=== PATIENT | male | born 1990 | race Caucasian/White ===

== ENCOUNTER 2018-05-20 11:08 | Emergency (ER) | payer OTHER ==
--- NOTE | 2018-05-20 11:17 | ERPHSYRPT ---
- History of Present Illness Time Seen by Provider: 05/20/18 11:16 Historian: patient Exam Limitations: no limitations Physician History: 27 y/o white male presents with left flank pain. began suddenly this am and radiates into left groin. associated n/v x 1. pt is diaphoretic. pt has nkda. Timing/Duration: today Activities at Onset: none Quality: sharpness, stabbing Abdominal Pain Onset Location: flank (left) Pain Radiation: groin (left) Severity of Pain-Max: moderate Severity of Pain-Current: moderate Modifying Factors: Improves With: vomiting (x1) Associated Symptoms: back, vomiting (x1) Previous symptoms: no prior history Allergies/Adverse Reactions: No Known Drug Allergies Allergy (Unverified 05/20/18 11:17) - Review of Systems Constitutional: No Symptoms Eyes: No Symptoms Ears, Nose, & Throat: No Symptoms Respiratory: No Symptoms Cardiac: No Symptoms Abdominal/Gastrointestinal: Nausea, Vomiting Genitourinary Symptoms: Flank Pain (left) Musculoskeletal: No Symptoms Skin: No Symptoms Neurological: No Symptoms Psychological: No Symptoms Endocrine: No Symptoms Hematologic/Lymphatic: No Symptoms Immunological/Allergic: No Symptoms All Other Systems: Reviewed and Negative - Past Medical History Pertinent Past Medical History: No Neurological History: No Pertinent History ENT History: No Pertinent History Cardiac History: No Pertinent History Respiratory History: No Pertinent History Endocrine Medical History: No Pertinent History Musculoskeletal History: No Pertinent History GI Medical History: No Pertinent History History: No Pertinent History Psycho-Social History: No Pertinent History Male Reproductive Disorders: No Pertinent History - Past Surgical History Neuro Surgical History: No Pertinent History Cardiac: No Pertinent History Respiratory: No Pertinent History Gastrointestinal: No Pertinent History Genitourinary: No Pertinent History Musculoskeletal: No Pertinent History Male Surgical History: No Pertinent History - Nursing Vital Signs Nursing Vital Signs: Initial Vital Signs Temperature 97.9 F 05/20/18 11:11 Pulse Rate 102 H 05/20/18 11:11 Respiratory Rate 24 05/20/18 11:11 Blood Pressure 157/96 05/20/18 11:11 O2 Sat by Pulse Oximetry 97 05/20/18 11:11 Pain Scale Pain Intensity 4 - Physical Exam General Appearance: moderate distress, alert, anxiety Eye Exam: PERRL/EOMI Ears, Nose, Throat Exam: normal ENT inspection, moist mucous membranes Neck Exam: normal inspection, non-tender, supple, full range of motion Respiratory Exam: normal breath sounds, lungs clear, airway intact, No chest tenderness, No respiratory distress Cardiovascular Exam: normal heart sounds, normal peripheral pulses, tachycardia Gastrointestinal/Abdomen Exam: soft, normal bowel sounds, No tenderness, No guarding, No rebound Rectal Exam: not done Back Exam: normal inspection, normal range of motion, CVA tenderness (left), No vertebral tenderness Extremity Exam: normal inspection, normal range of motion, pelvis stable Neurologic Exam: alert, cooperative, 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 Skin Exam: normal color, warm, dry Lymphatic Exam: No adenopathy SpO2 Interpretation: normal O2 Delivery: Room Air - Course Nursing assessment & vital signs reviewed: Yes Ordered Tests: Active Orders 24 hr Category Date Time Status Clean Catch Urine Specimen STAT Care 05/20/18 11:23 Active IV Insertion STAT Care 05/20/18 11:23 Active ABDOMEN AND PELVIS W/0 CONTRAS [CT] Stat Exams 05/20/18 11:22 Taken AMYLASE Stat Lab 05/20/18 11:23 Completed CBC W DIFF Stat Lab 05/20/18 11:23 Completed CMP Stat Lab 05/20/18 11:23 Completed UA W/RFX UR CULTURE Stat Lab 05/20/18 11:23 Uncollected Medication Summary Generic Name Dose Route Start Last Admin Trade Name Freq PRN Reason Stop Dose Admin Sodium Chloride 1,000 mls @ 999 mls/hr 05/20/18 11:23 05/20/18 11:27 Sodium Chloride 0.9% 1000 Ml IV 05/20/18 12:23 999 mls/hr .Q1H1M STA Administration Discontinued Medications Generic Name Dose Route Start Last Admin Trade Name Freq PRN Reason Stop Dose Admin Hydromorphone HCl Confirm 05/20/18 11:22 Hydromorphone 1 Mg/Ml Ampule Administered 05/20/18 11:23 Dose 1 mg .ROUTE .STK-MED ONE Hydromorphone HCl 1 mg 05/20/18 11:23 05/20/18 11:26 Hydromorphone 1 Mg/Ml Ampule IV 05/20/18 11:24 1 mg STAT ONE Administration Sodium Chloride Confirm 05/20/18 11:27 Sodium Chloride 0.9% 1000 Ml Administered 05/20/18 11:28 Dose 1,000 mls @ ud .ROUTE .STK-MED ONE Ketorolac Tromethamine Confirm 05/20/18 11:21 Toradol 30 Mg Injection Administered 05/20/18 11:22 Dose 30 mg .ROUTE .STK-MED ONE Ketorolac Tromethamine 30 mg 05/20/18 11:23 05/20/18 11:26 Toradol 30 Mg Injection IV 05/20/18 11:24 30 mg STAT ONE Administration Ondansetron HCl Confirm 05/20/18 11:21 Zofran 4 Mg/2 Ml Vial Administered 05/20/18 11:22 Dose 4 mg .ROUTE .STK-MED ONE Ondansetron HCl 4 mg 05/20/18 11:23 05/20/18 11:26 Zofran 4 Mg/2 Ml Vial IV 05/20/18 11:24 4 mg STAT ONE Administration Lab/Rad Data: Laboratory Result Diagrams 05/20/18 11:23 05/20/18 11:23 Laboratory Results 05/20/18 05/20/18 Range/Units 11:23 11:23 WBC 9.2 (4.0-10.5) K/mm3 RBC 5.58 (4.1-5.6) M/mm3 Hgb 16.3 (12.5-18.0) gm/dl Hct 47.5 (42-50) % MCV 85.1 (78-100) fl MCH 29.2 (26-32) pg MCHC 34.3 (32-36) g/dl RDW 12.7 (11.5-14.0) % Plt Count 266 (150-450) K/mm3 MPV 10.7 H (6-9.5) fl Gran % 59.6 (36.0-66.0) % Eos # (Auto) 0.24 (0-0.5) Absolute Lymphs (auto) 2.69 (1.0-4.6) Absolute Monos (auto) 0.75 (0.0-1.3) Lymphocytes % 29.2 (24.0-44.0) % Monocytes % 8.1 (0.0-12.0) % Eosinophils % 2.6 (0.00-5.0) % Basophils % 0.5 (0.0-0.4) % Absolute Granulocytes 5.48 (1.4-6.9) Basophils # 0.05 (0-0.4) Sodium 142 (137-145) mmol/L Potassium 3.1 L (3.5-5.1) mmol/L Chloride 105 (98-107) mmol/L Carbon Dioxide 24 (22-30) mmol/L Anion Gap 16.5 H (5-15) MEQ/L BUN 15 (9-20) mg/dL Creatinine 1.07 (0.66-1.25) mg/dL Estimated GFR > 60.0 ML/MIN Glucose 142 H (74-106) mg/dL Calcium 9.7 (8.4-10.2) mg/dL Total Bilirubin 2.10 H (0.2-1.3) mg/dL AST 23 (17-59) U/L ALT 28 (0-50) U/L Alkaline Phosphatase 74 (38-126) U/L Serum Total Protein 8.4 H (6.3-8.2) g/dL Albumin 5.0 (3.5-5.0) g/dL Amylase 115 H (30-110) U/L - Progress Progress: improved, pain not gone completely, re-examined Progress Note: 05/20/18 12:19 ct scan abd/pelvis-left mid ureter 4 to 5 mm calculus. minimal hydronephrosis Counseled pt/family regarding: lab results, diagnosis, need for follow-up, rad results - Departure Time of Disposition: 12:21 Departure Disposition: Home Clinical Impression: Ureteral stone Condition: Stable Critical Care Time: No Referrals: FEDERICO TREJO MD [Emergency Provider] - Additional Instructions: drink plenty of fluids. follow up with urologist for further management. add ibuprofen 600mg orally 3 times daily with food. Prescriptions: Hydrocodone/APAP 5-325 Tab^^^ [[place] 5-325 Tablet^^^] 1 tab PO Q6HPRN PRN #10 tablet MDD 6 PRN Reason: Pain
[2018-05-20] MEDS ORDERED: TORAdol 30 mg Injection ONE (11:21)
[2018-05-20] MEDS ORDERED: Zofran 4 MG/2 ML VIAL ONE (11:21)
[2018-05-20] MEDS ORDERED: Hydromorphone 1 mg/ml Ampule ONE (11:22)
[2018-05-20] MEDS ORDERED: Sodium Chloride 0.9% 1000 ML 1,000 ML IV STA (11:23)
[2018-05-20] MEDS ORDERED: TORAdol 30 mg Injection IV ONE (11:23)
[2018-05-20] MEDS ORDERED: Zofran 4 MG/2 ML VIAL IV ONE (11:23)
[2018-05-20] MEDS ORDERED: Hydromorphone 1 mg/ml Ampule IV ONE (11:23)
[2018-05-20] MEDS ORDERED: Sodium Chloride 0.9% 1000 ML 1,000 ML ONE (11:27)
[2018-05-20 11:50] LABS: ALKALINE PHOSPHATASE 74 U/L (38-126); AMYLASE 115 U/L (30-110); ANION GAP 16.5 MEQ/L (5-15); BLOOD UREA NITROGEN 15 mg/dL (9-20); CHLORIDE 105 mmol/L (98-107); Calcium 9.7 mg/dL (8.4-10.2); Carbon Dioxide 24 mmol/L (22-30); Creatinine 1 1.07 mg/dL (0.66-1.25); Glucose 142 mg/dL (74-106); Potassium 3.1 mmol/L (3.5-5.1); SGOT/AST 23 U/L (17-59); SGPT/ALT 28 U/L (0-50); SODIUM 142 mmol/L (137-145); Total Protein 8.4 g/dL (6.3-8.2)
[2018-05-20 11:52] LABS: BASOPHIL % 0.5 % (0.0-0.4); Basophil (Absolute #) 0.05 (0-0.4); Eosinophil % 2.6 % (0.00-5.0); Eosinophil (Absolute #) 0.24 (0-0.5); Granulocyte Absolute (ANC) 5.48 (1.4-6.9); Granulocytes % 59.6 % (36.0-66.0); Hematocrit 47.5 % (42-50); Hemoglobin 16.3 gm/dl (12.5-18.0); Lymphocyte (Absolute #) 2.69 (1.0-4.6); Lymphocytes % 29.2 % (24.0-44.0); Mean Cell Volume 85.1 fl (78-100); Mean Corpuscular Hemoglobin 29.2 pg (26-32); Mean Corpuscular Hgb Concent. 34.3 g/dl (32-36); Mean Platelet Volume 10.7 fl (6-9.5); Monocyte (Absolute #) 0.75 (0.0-1.3); Monocytes % 8.1 % (0.0-12.0); Platelet Count 266 K/mm3 (150-450); Red Blood Count 5.58 M/mm3 (4.1-5.6); Red Cell Distribution Width 12.7 % (11.5-14.0); White Blood Count 9.2 K/mm3 (4.0-10.5)
--- NOTE | 2018-05-20 12:10 | XRAY ---
Indication: Left flank pain. Multiple contiguous axial images obtained through the abdomen and pelvis without contrast using renal stone protocol. Comparison: None Lung bases essentially clear. Heart is not enlarged. There is a 4-5 mm left mid ureter calculus, approximately L5 level. Proximal left ureter is slightly prominent and minimal hydronephrosis consistent with partial obstructive uropathy. No perinephric fluid. Right kidney demonstrates 5 mm nonobstructing calculus. Noncontrasted stomach and bowel loops appear nonobstructed. Patient reports appendectomy but normal appearing appendix. No free fluid/air. Remaining liver, gallbladder, pancreas, spleen, adrenal glands, kidneys, ureters, bladder, and aorta appear unremarkable for noncontrast exam. Osseous structures intact. No ventral or inguinal hernias. Impression: 4-5 mm left mid ureter calculus producing partial obstruction as detailed. Nonobstructing right renal micro-calculus. CT DI 22.66
[2018-05-20] MEDS ORDERED: Sodium Chloride 0.9% 500 ML 500 ML IV ONE ×2 (12:36→13:05)
[2018-05-20 13:42] VITALS: BP 157/90
[2018-05-20 14:47] VITALS: PULSE 70; O2SAT 97
[2018-05-20 14:56] LABS: Appearance CLEAR (CLEAR); Bilirubin NEGATIVE (NEGATIVE); Blood LARGE Ery/ul (0-5); Glucose NEGATIVE (NEGATIVE); Ketones NEGATIVE (NEGATIVE); Leukocyte Esterase NEGATIVE (NEGATIVE); Mucus SLIGHT /HPF (NEGATIVE); Nitrite NEGATIVE (NEGATIVE); Protein,Urine Dip NEGATIVE (Negative); RBC 51-100 /HPF (0-2); Specific Gravity 1.012 (1.005-1.025); Urobilinogen NEGATIVE mg/dL (0-1)
== END 2018-05-20 14:25 | disposition home or self-care (01) ==
LOC: ED 11:08
DX: N20.1 Calculus of ureter (principal)
CPT/HCPCS: 36000; 36415; 74176; 80053; 81001; 82150; 85025; 96360; 96361; 96374; 96375; 99284; J1170; J1885; J2405

== ENCOUNTER 2018-05-30 00:24 | Emergency (ER) | payer OTHER ==
[2018-05-30] MEDS ORDERED: Sodium Chloride 0.9% 1000 ML 1,000 ML ONE ×2 (00:44→02:49)
[2018-05-30] MEDS ORDERED: Sodium Chloride 0.9% 1000 ML 1,000 ML IV STA (00:45)
[2018-05-30] MEDS ORDERED: Hydromorphone 1 mg/ml Ampule IV ONE (00:45)
[2018-05-30] MEDS ORDERED: Hydromorphone 1 mg/ml Ampule ONE (00:47)
[2018-05-30 00:55] LABS: BASOPHIL % 0.6 % (0.0-0.4); Basophil (Absolute #) 0.07 (0-0.4); Eosinophil % 2.4 % (0.00-5.0); Eosinophil (Absolute #) 0.29 (0-0.5); Granulocyte Absolute (ANC) 5.49 (1.4-6.9); Granulocytes % 45.2 % (36.0-66.0); Hematocrit 46.8 % (42-50); Hemoglobin 16.2 gm/dl (12.5-18.0); Lymphocyte (Absolute #) 4.96 (1.0-4.6); Lymphocytes % 40.8 % (24.0-44.0); Mean Cell Volume 84.5 fl (78-100); Mean Corpuscular Hemoglobin 29.2 pg (26-32); Mean Corpuscular Hgb Concent. 34.6 g/dl (32-36); Mean Platelet Volume 10.2 fl (6-9.5); Monocyte (Absolute #) 1.34 (0.0-1.3); Platelet Count 316 K/mm3 (150-450); Red Blood Count 5.54 M/mm3 (4.1-5.6); Red Cell Distribution Width 12.6 % (11.5-14.0); White Blood Count 12.2 K/mm3 (4.0-10.5)
[2018-05-30] MEDS ORDERED: Zofran 4 MG/2 ML VIAL IV ONE (01:14)
[2018-05-30] MEDS ORDERED: TORAdol 30 mg Injection IV ONE (01:14)
[2018-05-30] MEDS ORDERED: Zofran 4 MG/2 ML VIAL ONE (01:15)
[2018-05-30] MEDS ORDERED: TORAdol 30 mg Injection ONE (01:15)
[2018-05-30 01:37] LABS: ALBUMIN 4.9 g/dL (3.5-5.0); ALKALINE PHOSPHATASE 71 U/L (38-126); ANION GAP 15.8 MEQ/L (5-15); BLOOD UREA NITROGEN 14 mg/dL (9-20); CHLORIDE 106 mmol/L (98-107); Calcium 9.4 mg/dL (8.4-10.2); Carbon Dioxide 24 mmol/L (22-30); Creatinine 1 1.02 mg/dL (0.66-1.25); Glucose 98 mg/dL (74-106); SGOT/AST 24 U/L (17-59); SGPT/ALT 31 U/L (0-50); SODIUM 143 mmol/L (137-145); Total Protein 8.2 g/dL (6.3-8.2)
[2018-05-30] MEDS ORDERED: ROCEPHIN 1 Gm-D5w 50 ml Bag** 1 G/50 ML IVPB IV STA (01:53)
[2018-05-30] MEDS ORDERED: ROCEPHIN 1 Gm-D5w 50 ml Bag** 1 G/50 ML IVPB IV ONE (01:58)
[2018-05-30] MEDS ORDERED: Klor Con 10 MEQ PO ONE ×2 (02:43→02:48)
[2018-05-30] MEDS ORDERED: Sodium Chloride 0.9% 1000 ML 1,000 ML IV SCH (02:45)
[2018-05-30 02:50] LABS: Appearance SLIGHTLY CLOUDY (CLEAR); Bacteria RARE /HPF (NEGATIVE); Bilirubin NEGATIVE (NEGATIVE); Blood LARGE Ery/ul (0-5); Glucose NEGATIVE (NEGATIVE); Ketones NEGATIVE (NEGATIVE); Leukocyte Esterase NEGATIVE (NEGATIVE); Mucus SLIGHT /HPF (NEGATIVE); Nitrite NEGATIVE (NEGATIVE); Protein,Urine Dip 30 (Negative); Urobilinogen NEGATIVE mg/dL (0-1)
--- NOTE | 2018-05-30 02:50 | ERPHSYRPT ---
- History of Present Illness Source: patient Exam Limitations: no limitations Patient Subjective Stated Complaint: pt states he started having pain in his rt abd and back yesterday. states he was in the er last week for a kidney stone on the lt side and the pain feels the same tonight Triage Nursing Assessment: pt alert and oriented, answers questions approp. pt ambulatory with steady gait ntoed. pacing in waiting room. respirations nonlabored with lungs cta. abd soft and nontender to light palpation. bowel sounds present. Physician History: Pt is a 27 y/o male with a recent history of L kidney stone mid ureter, that was diagnosed three days ago. Pt was d/c to home with a sieve. Today the pt presented with severe R CVA pain, and cramping pain. Pt denies F/C/S. No SOB or wheeze. Radiation of pain to RLQ. No chest pain or palpitations. No N/V/D. Timing/Duration: today Activites at Onset: none Quality: cramping, sharpness, stabbing Onset Location: right flank Pain Radiation: RLQ Severity of Pain-Max: severe Severity of Pain-Current: mild Modifying Factors: Improves With: analgesics Associated Symptoms: denies symptoms Prior abdominal problems: similar symptoms (On the left) Allergies/Adverse Reactions: No Known Drug Allergies Allergy (Verified 05/30/18 00:39) Hx Tetanus, Diphtheria Vaccination/Date Given: Yes Hx Influenza Vaccination/Date Given: Yes Hx Pneumococcal Vaccination/Date Given: No Immunizations Up to Date: Yes - Past Medical History Pertinent Past Medical History: No Neurological History: No Pertinent History ENT History: No Pertinent History Cardiac History: No Pertinent History Respiratory History: No Pertinent History Endocrine Medical History: No Pertinent History Musculoskeletal History: No Pertinent History GI Medical History: No Pertinent History History: No Pertinent History Psycho-Social History: No Pertinent History Male Reproductive Disorders: No Pertinent History Other Medical History: hx of kidney stone last week - Past Surgical History Past Surgical History: Yes Neuro Surgical History: No Pertinent History Cardiac: No Pertinent History Respiratory: No Pertinent History Gastrointestinal: No Pertinent History Genitourinary: No Pertinent History Musculoskeletal: No Pertinent History Male Surgical History: No Pertinent History Other Surgical History: appendix. cyst on head - Social History Smoking Status: Never smoker Exposure to second hand smoke: No Drug Use: none Patient Lives Alone: No - Review of Systems Constitutional: No Fever, No Chills Respiratory: No Cough, No Dyspnea Cardiac: No Chest Pain, No Edema, No Syncope Abdominal/Gastrointestinal: Abdominal Pain (RLQ), Nausea Genitourinary Symptoms: Flank Pain (On the R with radiation to RLQ) Musculoskeletal: No Back Pain, No Neck Pain Neurological: No Dizziness, No Focal Weakness, No Sensory Changes - Nursing Vital Signs Nursing Vital Signs: Initial Vital Signs Temperature 98.0 F 05/30/18 00:28 Pulse Rate 93 H 05/30/18 00:28 Respiratory Rate 18 05/30/18 00:28 Blood Pressure 166/97 05/30/18 00:28 O2 Sat by Pulse Oximetry 98 05/30/18 00:28 Pain Scale Pain Intensity 4 - Physical Exam General Appearance: severe distress (Secondary to pain) Eye Exam: PERRL/EOMI Neck Exam: normal inspection, supple Respiratory Exam: normal breath sounds, lungs clear Cardiovascular Exam: regular rate/rhythm, No edema Gastrointestinal/Abdomen Exam: soft, tenderness (RLQ and R CVA) Rectal Exam: deferred Back Exam: CVA tenderness (On the R) Extremity Exam: normal inspection, normal range of motion, No pedal edema Neurologic Exam: alert, oriented x 3, cooperative, sensation nml, No motor deficits SpO2: 99 - Course Nursing assessment & vital signs reviewed: Yes - CT Exams Abdomen/Pelvis CT Interpretation: Tele-radiologist Report (B/l kidney stones mid ureter with R hydronephrosis.) Ordered Tests: Active Orders 24 hr Category Date Time Status ABDOMEN AND PELVIS W/0 CONTRAS [CT] Stat Exams 05/30/18 00:43 Taken CBC W DIFF Stat Lab 05/30/18 00:44 Completed CMP Stat Lab 05/30/18 00:44 Completed UA W/RFX UR CULTURE Stat Lab 05/30/18 02:33 Received Medication Summary Generic Name Dose Route Start Last Admin Trade Name Freq PRN Reason Stop Dose Admin Sodium Chloride 1,000 mls @ 100 mls/hr 05/30/18 02:45 Sodium Chloride 0.9% 1000 Ml IV 06/29/18 02:44 .Q10H MICHELLE Discontinued Medications Generic Name Dose Route Start Last Admin Trade Name Freq PRN Reason Stop Dose Admin Hydromorphone HCl 1 mg 05/30/18 00:45 05/30/18 00:51 Hydromorphone 1 Mg/Ml Ampule IV 05/30/18 00:46 1 mg STAT ONE Administration Hydromorphone HCl Confirm 05/30/18 00:47 Hydromorphone 1 Mg/Ml Ampule Administered 05/30/18 00:48 Dose 1 mg .ROUTE .STK-MED ONE Sodium Chloride 1,000 mls @ 999 mls/hr 05/30/18 00:45 05/30/18 02:39 Sodium Chloride 0.9% 1000 Ml IV 05/30/18 01:45 Infused .Q1H1M STA Infusion Sodium Chloride Confirm 05/30/18 00:44 Sodium Chloride 0.9% 1000 Ml Administered 05/30/18 00:45 Dose 1,000 mls @ ud .ROUTE .STK-MED ONE Ceftriaxone Sodium/Dextrose 1 g in 50 mls @ 100 mls/hr 05/30/18 01:53 02:37 Rocephin 1 Gm-D5w 50 Ml Bag IV 05/30/18 02:22 Infused STAT STA Infusion Ceftriaxone Sodium/Dextrose Confirm 05/30/18 01:58 Rocephin 1 Gm-D5w 50 Ml Bag Administered 05/30/18 01:59 Dose 1 g in 50 mls @ ud IV .STK-MED ONE Ketorolac Tromethamine 30 mg 05/30/18 01:14 05/30/18 01:19 Toradol 30 Mg Injection IV 05/30/18 01:15 30 mg STAT ONE Administration Ketorolac Tromethamine Confirm 05/30/18 01:15 Toradol 30 Mg Injection Administered 05/30/18 01:16 Dose 30 mg .ROUTE .STK-MED ONE Ondansetron HCl 4 mg 05/30/18 01:14 05/30/18 01:17 Zofran 4 Mg/2 Ml Vial IV 05/30/18 01:15 4 mg STAT ONE Administration Ondansetron HCl Confirm 05/30/18 01:15 Zofran 4 Mg/2 Ml Vial Administered 05/30/18 01:16 Dose 4 mg .ROUTE .STK-MED ONE Potassium Chloride 40 meq 05/30/18 02:43 Klor Con 10 Meq PO 05/30/18 02:44 STAT ONE Lab/Rad Data: Laboratory Result Diagrams 05/30/18 00:44 05/30/18 00:44 Laboratory Results 05/30/18 05/30/18 Range/Units 00:44 00:44 WBC 12.2 H (4.0-10.5) K/mm3 RBC 5.54 (4.1-5.6) M/mm3 Hgb 16.2 (12.5-18.0) gm/dl Hct 46.8 (42-50) % MCV 84.5 (78-100) fl MCH 29.2 (26-32) pg MCHC 34.6 (32-36) g/dl RDW 12.6 (11.5-14.0) % Plt Count 316 (150-450) K/mm3 MPV 10.2 H (6-9.5) fl Gran % 45.2 (36.0-66.0) % Eos # (Auto) 0.29 (0-0.5) Absolute Lymphs (auto) 4.96 H (1.0-4.6) Absolute Monos (auto) 1.34 H (0.0-1.3) Lymphocytes % 40.8 (24.0-44.0) % Monocytes % 11.0 (0.0-12.0) % Eosinophils % 2.4 (0.00-5.0) % Basophils % 0.6 (0.0-0.4) % Absolute Granulocytes 5.49 (1.4-6.9) Basophils # 0.07 (0-0.4) Sodium 143 (137-145) mmol/L Potassium 3.0 L (3.5-5.1) mmol/L Chloride 106 (98-107) mmol/L Carbon Dioxide 24 (22-30) mmol/L Anion Gap 15.8 H (5-15) MEQ/L BUN 14 (9-20) mg/dL Creatinine 1.02 (0.66-1.25) mg/dL Estimated GFR > 60.0 ML/MIN Glucose 98 (74-106) mg/dL Calcium 9.4 (8.4-10.2) mg/dL Total Bilirubin 1.80 H (0.2-1.3) mg/dL AST 24 (17-59) U/L ALT 31 (0-50) U/L Alkaline Phosphatase 71 (38-126) U/L Serum Total Protein 8.2 (6.3-8.2) g/dL Albumin 4.9 (3.5-5.0) g/dL - Progress Progress: improved Progress Note: 05/30/18 02:51 Pt was in severe pain on presentation. He got Dilaudid 1mg IV, Toradol 30mg IV and Zofran. A liter of IVF was director special education as a bolus. Lab work showed leukocytosis , and pt got Rocephin IV. UA is pending. Secondary to results of CT that showed b/l stones, with R hydronephrosis, [facility], and Dr Cortes accepted. Pt will be transfered for urology work up. IVF will continue at 100ml/hr, and will give 40meq of KCl PO. 05/30/18 02:52 - Departure Time of Disposition: 02:53 Departure Disposition: Transfer Clinical Impression: Nephrolithiasis Condition: Stable Critical Care Time: No Referrals: DOCTOR,NO FAMILY [Primary Care Provider] -
[2018-05-30 02:51] LABS: RBC >101 /HPF (0-2)
[2018-05-30 02:52] LABS: Budding Yeast Few /HPF (NEGATIVE)
[2018-05-30 03:13] VITALS: BP 112/72; PULSE 89; O2SAT 97
--- NOTE | 2018-05-30 08:44 | XRAY ---
Indication: Right flank pain and hematuria. Multiple contiguous axial images obtained through the abdomen and pelvis without contrast using renal stone protocol. Comparison: May 20, 2018. Lung bases again remain clear. Heart is not enlarged. New 5 mm proximal right ureter calculus, approximately L3 level. Proximal right ureter slightly prominent along with mild hydronephrosis consistent with partial obstructive uropathy. Additional 2-3 mm right renal calculus. Previous left ureteral micro-calculus has propagated distally now approximately S1 level but no hydronephrosis or hydroureter. Stomach is distended with food/fluid. Noncontrasted stomach and bowel loops remain nonobstructed. Normal appendix. No free fluid/air. Remaining liver, gallbladder, pancreas, spleen, adrenal glands, kidneys, ureters, bladder, and aorta appear unremarkable for noncontrast exam. Impression: New 5 mm proximal right ureter calculus producing partial obstruction. Previous left ureter micro-calculus has propagated more distally. Additional right renal micro-calculus. Comment: Preliminary interpretation was made by [facility]. No discrepancy. CT DI 23.43
== END 2018-05-30 03:40 | disposition home or self-care (01) ==
LOC: ED 00:24
DX: N20.0 Calculus of kidney (principal)
CPT/HCPCS: 36415; 74176; 80053; 81001; 85025; 87086; 96360; 96361; 96365; 96374; 96375; 99285; J0696; J1170; J1885; J2405; A9270-GY